=== PATIENT | male | born 1945 | race African-American/Black ===

== ENCOUNTER 2019-01-08 15:03 | Inpatient (IN) | payer MEDICARE ==
[~2019-01-08] VITALS: Ht 185.4 cm; Wt 83.5 kg
--- OUTSIDE RECORDS SUMMARY | 2019-01-08 15:06 | XMS REPORT ---
Author Author [facility] Address Unknown Phone Unavailable Care Team Providers Care Electro Mechanic Name Role Phone Unavailable Unavailable Payers Payer Name Policy Type Policy Number Effective Date Expiration Date Problems This patient has no known problems. Allergies, Adverse Reactions, Alerts Allergy Name Allergy Type Status Severity Reaction(s) Onset Date Inactive Date Treating Clinician Comments No Known Allergies DA Active U 2016-03-30 00:00:00 Medications This patient has no known medications.
--- OUTSIDE RECORDS SUMMARY | 2019-01-08 15:06 | XMS REPORT | Clinical Summary ---
Author Author [facility] Address Unknown Phone Unavailable Care Team Providers Care Water/Wastewater Project Manager Name Role Phone Jagjit Villela MD PCP Allergies No Known Allergies Medications End Date Status Medication Sig Dispensed Refills Start Date Active diphenoxylate-atropine Take 1 tablet 2 (LOMOTIL) 2.5-0.025 mg by mouth 4 7 per tablet (four) times a day as needed. Active metoprolol tartrate TK 1 T PO 3 (LOPRESSOR) 25 mg tablet BID 7 Active pantoprazole (PROTONIX) TK 1 T PO BID 2 40 MG EC tablet 7 Active VOTRIENT 200 mg chemo TAKE 4 tablet TABLETS BY 7 MOUTH ONCE A DAY ON A EMPTY STOMACH Active simvastatin (ZOCOR) 40 MG Take 40 mg by 4 tablet mouth 7 nightly. Active valsartan (DIOVAN) 80 MG Take 80 mg by 0 tablet mouth every morning. Active DOCOSAHEXANOIC ACID/EPA Take 2 0 (FISH OIL ORAL) capsules by mouth daily. Active garlic capsule Take 1 0 capsule by mouth 2 (two) times a day. Active metoprolol succinate XL TK 1 T PO QD 3 (TOPROL-XL) 50 mg 24 hr 7 tablet Active tamsulosin (FLOMAX) 0.4 Take 1 90 capsule 3 mg capsule,extended capsule (0.4 8 release 24hrIndications: mg total) by Frequent urinary mouth daily. incontinence Active finasteride (PROSCAR) 5 TAKE 1 90 tablet 0 mg tablet TABLET(5 MG) 9 BY MOUTH DAILY 08/30/2019 Active finasteride (PROSCAR) 5 Take 1 tablet 90 tablet 3 08/30/201 mg tablet (5 mg total) 9 by mouth daily. 05/21/2018 Discontinued (Reorder) finasteride (PROSCAR) 5 Take 1 tablet 90 tablet 3 201 mg tablet (5 mg total) 8 by mouth daily. Active Problems Problem Noted Date Left renal mass 11/22/2016 Encounters Care Team Description Date Type Specialty Richard Barr MD Left renal mass (Primary Dx); Frequent urinary incontinence 08/30/2018 Office Visit Urology Richard Barr MD 05/21/2018 Refill Urology after 01/07/2018 Family History Medical History Relation Name Comments Heart failure Brother Cancer Brother Lung cancer Brother Cancer Father Colon cancer Father Alzheimer's disease Mother Relation Name Status Comments Brother Brother Father Mother Social History Date Tobacco Use Types Packs/Day Years Used Quit: 1991 Former Smoker Cigarettes 20 Drinks/Week oz/Week Comments Alcohol Use No Sex Assigned at Date Recorded Not on file Industry Job Start Date Occupation Not on file Not on file Not on file Travel End Travel History Travel Start No recent travel history available. Last Filed Vital Signs Reading Time Taken Comments Vital Sign - - Blood Pressure - - Pulse - - Temperature 16 08/30/2018 11:53 AM CDT Respiratory Rate - - Oxygen Saturation - - Inhaled Oxygen Concentration 74.4 kg (164 lb) 08/30/2018 11:53 AM CDT Weight 182.9 cm (6') 08/30/2018 11:53 AM CDT Height 22.24 08/30/2018 11:53 AM CDT Body Mass Index Plan of Treatment Health Maintenance Due Date Last Done Comments COLONOSCOPY SCREENING 08/31/1997 SHINGLES VACCINES (#1) 08/31/1997 65+ PNEUMOCOCCAL VACCINE 08/31/2012 (1 of 2 - PCV13) INFLUENZA VACCINE 11/23/2018 Implants Device Identifier Shelf Expiration Date Model / Serial / Lot Implanted Type Area Manufactur er Titanium Description:titanium nereida and screws in hip Results Not on fileafter 01/07/2018 Insurance Type Payer Benefit Subscriber ID Effective Phone Address Plan / Dates Group Medicare MEDICARE MEDICARE xxxxxxxxxxx 2012-P [place], PART A AND resent [place] B Commercial AARP AARP xxxxxxxxxxx 2015-P SUPPLEMENT resent Advance Directives For more information, please contact: [phone] 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
[2019-01-08] MEDS ORDERED: SODIUM CHLORIDE 0.9% 1000ML 1,000 ML IV ONE (17:00)
[2019-01-08 17:41] LABS: BASOPHILS % 0.3 % (0.0-1.0); EOSINOPHILS % 0.2 % (0.0-6.0); HEMATOCRIT 34.1 % (38.2-49.6); HEMOGLOBIN 11.5 g/dL (14.0-18.0); LYMPHOCYTES # (AUTO) 0.4 (1.0-3.2); LYMPHOCYTES % 7.2 % (18.0-39.1); MEAN CORPUSCULAR HEMOGLOBIN 36.9 pg (28-32); MEAN CORPUSCULAR HGB CONC 33.7 g/dL (31-35); MEAN CORPUSCULAR VOLUME 109.3 fL (81-99); MONOCYTES # (AUTO) 0.3 (0.2-0.8); MONOCYTES % 4.7 % (4.4-11.3); NEUTROPHILS # (AUTO) 5.2 (2.1-6.9); NEUTROPHILS % 86.6 % (38.7-80.0); PLATELET COUNT 267 x10e3/uL (140-360); RED BLOOD COUNT 3.12 x10e6/uL (4.3-5.7); RED CELL DISTRIBUTION WIDTH 15.4 % (11.7-14.4)
[2019-01-08 18:09] LABS: ALANINE AMINOTRANSFERASE 53 IU/L (0-55); ALBUMIN 2.3 g/dL (3.5-5.0); ALBUMIN/GLOBULIN RATIO 0.5 (0.8-2.0); ALKALINE PHOSPHATASE 214 IU/L (40-150); ANION GAP 14.7 mmol/L (8-16); BLOOD UREA NITROGEN 19 mg/dL (7-26); BUN/CREATININE RATIO 24 (6-25); CALCIUM 9.7 mg/dL (8.4-10.2); CARBON DIOXIDE 25 mmol/L (22-29); CHLORIDE 95 mmol/L (98-107); CREATININE, SERUM 0.78 mg/dL (0.72-1.25); EST GLOMERULAR FILTRATION RATE > 60 ML/MIN (60-); GLUCOSE 98 mg/dL (74-118); POTASSIUM 3.7 mmol/L (3.5-5.1); SODIUM 131 mmol/L (136-145)
[2019-01-08] MEDS ORDERED: LACTULOSE SYRUP 20 GM/30 ML UDC PO PRN (18:30)
[2019-01-08] MEDS ORDERED: ONDANSETRON HCL INJ 2MG/ML 2ML 2 MG/ML VIAL IV PRN (18:30)
[2019-01-08] MEDS: SODIUM CHLORIDE 0.9% 1000ML 1,000 ML IV SCH (18:30)
[2019-01-08] MEDS ORDERED: SODIUM CHLORIDE FLUSH 10 ML SYR INJ PRN (18:30)
--- OUTSIDE RECORDS SUMMARY | 2019-01-08 19:01 | XMS REPORT | Clinical Summary ---
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
--- NOTE | 2019-01-08 19:19 | Diagnostic Imaging Report ---
Exam: Radiographs of the abdomen. Clinical History: Dehydration. Loss of appetite. Fatigue. Constipation. Comparison: None Findings: Frontal views of the abdomen demonstrate a nonobstructive bowel gas pattern with copious retained stool. There are no suspicious calcifications.Surgical clips in the right upper abdomen. Postsurgical change in the left hip. Likely large osteophyte in the mid left lumbar spine. Ill-defined opacity in the left lung base could be due to developing pneumonia in the appropriate clinical context. Impression: Findings which could be due to constipation. Ill-defined opacity in the left lung base could be due to developing pneumonia in the appropriate clinical context. Signed by: Dr. Sampson Diggs M.D. on 01/08/2019 7:15 PM
--- NOTE | 2019-01-08 20:18 | NUR ---
pt/family informed of admit to 115
--- NOTE | 2019-01-08 20:42 | NUR ---
2nd attempt to call report
--- NOTE | 2019-01-08 20:52 | NUR ---
3rd attempt to call report
--- NOTE | 2019-01-08 21:06 | NUR ---
REPORT CALLED AND HOME MEDS ENTERED INTO THE COMPUTER
[2019-01-08] MEDS ORDERED: LUMIGAN2.5 M1 (21:13)
[2019-01-08] MEDS ORDERED: TRAZODONE HCL50 MG PO (21:13)
[2019-01-08] MEDS ORDERED: BESIVANCE5 ML (21:13)
[2019-01-08] MEDS ORDERED: ALPRAZOLAM0.5 MG (21:13)
[2019-01-08] MEDS ORDERED: PROCHLORPERAZIN10 MG (21:13)
[2019-01-08] MEDS ORDERED: COMBIGAN EYE DRO5 ML (21:13)
[2019-01-08] MEDS ORDERED: FINASTERIDE5 MG (21:13)
[2019-01-08] MEDS ORDERED: LOPRESSOR25 MG PO (21:13)
[2019-01-08] MEDS ORDERED: ASPIRIN325 MG PO (21:13)
--- NOTE | 2019-01-08 21:13 | NUR ---
ANNABEL THE RECEIVING NURSE ON M-S 1 WAS NOTIFIED OF NEED FOR A URINE SPECIMEN
--- NOTE | 2019-01-08 21:50 | NUR ---
RECEIVED FROM ER IN [facility] WITH C/O DEHYDRATION AND CONSTIPATION/.[id number]. PER COMMENTS PT EATS NORMALLY AND USES WHEEL CHAIR AT HOME.ASSESSMENT DONE.NO RESP.DISTRESS.IV NS RUNNING TO RAC#20G.ORIENTED TO THE UNIT.BED LOCKED AND IN LOWEST POSITION.PHONE AND CALL LIGHT WITHIN REACH.INSTRUCTED TO CALL FOR ASSISTANCE NEEDED.FAMILY MEMBER AT BED SIDE.LEFT INDEX FINGER IS SWOLLEN AND RED.URINE TO BE SENT TO THE LAB.PROVIDED SPECIMEN CONTAINER AND EXPLAINED TO THE PATIENT AND FAMILY MEMBER.VERBALIZED UNDERSTANDING.
[2019-01-08 22:10] VITALS: BP 110/68
[2019-01-08 22:18] VITALS: BP 110/68
[2019-01-09] VITALS (9 sets, daily range): BP systolic 110–127; BP diastolic 68–83
[2019-01-09 04:33] LABS: BILIRUBIN,URINE NEGATIVE (NEGATIVE); CLARITY,URINE CLEAR (CLEAR); COLOR,URINE YELLOW (YELLOW); KETONES,URINE TRACE (NEGATIVE); LEUKOCYTE ESTERASE ,URINE TRACE (NEGATIVE); NITRITE,URINE NEGATIVE (NEGATIVE); PROTEIN,URINE DIPSTICK TRACE (NEGATIVE); URINE UROBILINOGEN 1 mg/dL (0.2 - 1)
[2019-01-09 04:41] LABS: BACTERIA,URINE FEW /HPF; RBC,URINE >50 /HPF (0-5); WBC,URINE (MAN) 21-50 /HPF (0-5)
[2019-01-09 04:42] LABS: EPITHELIAL CELLS,URINE FEW /LPF
[2019-01-09] MEDS: HYDROMORPHONE 1MG/1ML INJ IV PRN ×2 (05:23→17:15)
--- NOTE | 2019-01-09 05:24 | NUR ---
HAS C/O SHOULDER PAIN.NOTIFIED TO .RECEIVED NEW ORDERS.URINE SENT TO THE LAB.
[2019-01-09] MEDS: SODIUM CHLORIDE 0.9% 1000ML 1,000 ML IV SCH ×2 (05:33→14:23)
[2019-01-09 05:43] LABS: BASOPHILS % 0.2 % (0.0-1.0); EOSINOPHILS % 0.2 % (0.0-6.0); HEMATOCRIT 29.7 % (38.2-49.6); HEMOGLOBIN 9.9 g/dL (14.0-18.0); LYMPHOCYTES # (AUTO) 0.5 (1.0-3.2); LYMPHOCYTES % 9.6 % (18.0-39.1); MEAN CORPUSCULAR HEMOGLOBIN 36.5 pg (28-32); MEAN CORPUSCULAR HGB CONC 33.3 g/dL (31-35); MEAN CORPUSCULAR VOLUME 109.6 fL (81-99); MONOCYTES # (AUTO) 0.3 (0.2-0.8); NEUTROPHILS # (AUTO) 4.6 (2.1-6.9); NEUTROPHILS % 83.3 % (38.7-80.0); PLATELET COUNT 228 x10e3/uL (140-360); RED BLOOD COUNT 2.71 x10e6/uL (4.3-5.7); RED CELL DISTRIBUTION WIDTH 15.1 % (11.7-14.4)
[2019-01-09 06:05] LABS: ALANINE AMINOTRANSFERASE 42 IU/L (0-55); ALBUMIN 1.9 g/dL (3.5-5.0); ALBUMIN/GLOBULIN RATIO 0.5 (0.8-2.0); ALKALINE PHOSPHATASE 174 IU/L (40-150); ANION GAP 13.4 mmol/L (8-16); BLOOD UREA NITROGEN 14 mg/dL (7-26); BUN/CREATININE RATIO 22 (6-25); CALCIUM 8.3 mg/dL (8.4-10.2); CARBON DIOXIDE 21 mmol/L (22-29); CHLORIDE 100 mmol/L (98-107); CREATININE, SERUM 0.65 mg/dL (0.72-1.25); EST GLOMERULAR FILTRATION RATE > 60 ML/MIN (60-); GLUCOSE 86 mg/dL (74-118); MAGNESIUM 1.5 MG/DL (1.3-2.1); PHOSPHORUS 2.5 MG/DL (2.3-4.7); POTASSIUM 3.4 mmol/L (3.5-5.1); SODIUM 131 mmol/L (136-145)
--- NOTE | 2019-01-09 07:02 | NUR ---
BEDSIDE SHIFT REPORT GIVEN TO THE ONCOMING RN.WALKING ROUNDS DONE.
[2019-01-09] MEDS: DOCUSATE SODIUM LIQD 100 MG/10 ML UDC NG SCH ×2 (08:59→17:00)
[2019-01-09] MEDS ORDERED: CABOMETYX PO (11:30)
[2019-01-09] MEDS: LACTULOSE SYRUP 20 GM/30 ML UDC PO SCH (11:51)
[2019-01-09] MEDS: CEFEPIME 1GM/NS 0.9% 50 ML 50 ML IV SCH ×2 (11:51→23:36)
[2019-01-09] MEDS ORDERED: MINERAL OIL 132 ML BTL PR ONE (12:00)
[2019-01-09] MEDS ORDERED: AZITHROMYCIN 250MG/NS 100 ML 100 ML IV SCH (12:00)
[2019-01-09] MEDS ORDERED: PROCHLORPERAZINE MALEATE TAB 10 MG TAB PO SCH (12:00)
[2019-01-09] MEDS ORDERED: PROCHLORPERAZINE MALEATE TAB 10 MG TAB PO PRN (12:30)
[2019-01-09] MEDS: AZITHROMYCIN 250MG/NS 100 ML 100 ML IV SCH (12:43)
[2019-01-09] MEDS ORDERED: ALPRAZOLAM 0.5 MG TAB PO PRN (15:00)
[2019-01-09] MEDS ORDERED: ALPRAZOLAM 0.5 MG TAB PO SCH (15:00)
[2019-01-09] MEDS: METOPROLOL TARTRATE 25 MG TAB PO SCH (16:17)
[2019-01-09] MEDS ORDERED: FINASTERIDE 5 MG TAB PO ONE (22:00)
[2019-01-09] MEDS: BIMATOPROST(OPTH) 2.5 ML BOTTLE OP SCH (22:11)
[2019-01-09] MEDS ORDERED: METOPROLOL SUCCINATE 25 MG TAB XL PO ONE (22:30)
[2019-01-09] MEDS ORDERED: HYDROMORPHONE 1MG/1ML INJ IV PRN (23:00)
[2019-01-09] MEDS ORDERED: METOPROLOL TARTRATE 25 MG TAB PO ONE (23:15)
[2019-01-09] MEDS: ACETAMINOPHEN/CODEINE 300MG - 30MG TAB PO PRN (23:36)
[2019-01-10] VITALS (7 sets, daily range): BP systolic 104–127; BP diastolic 63–80
[2019-01-10] MEDS: SODIUM CHLORIDE 0.9% 1000ML 1,000 ML IV SCH ×3 (05:35→17:06)
[2019-01-10] MEDS ORDERED: FINASTERIDE 5 MG TAB PO SCH (09:00)
[2019-01-10] MEDS ORDERED: CABOMETYX 60 MG PO SCH (09:00)
[2019-01-10] MEDS ORDERED: TRAZODONE HCL 50 MG TAB PO SCH (09:00)
[2019-01-10] MEDS: DOCUSATE SODIUM LIQD 100 MG/10 ML UDC NG SCH (09:00)
[2019-01-10] MEDS: ASPIRIN 325 MG TAB PO SCH (10:55)
[2019-01-10] MEDS: BRIMONIDINE/TIMOLOL (OPTH SOLN 5 ML DRPETTE OP SCH (10:55)
[2019-01-10] MEDS: LACTULOSE SYRUP 20 GM/30 ML UDC PO SCH ×2 (10:57→17:30)
[2019-01-10] MEDS: METOPROLOL TARTRATE 25 MG TAB PO SCH ×2 (10:57→17:45)
[2019-01-10] MEDS: CEFEPIME 1GM/NS 0.9% 50 ML 50 ML IV SCH (11:55)
[2019-01-10] MEDS ORDERED: TRAZODONE HCL 50 MG TAB PO PRN ×2 (12:00)
--- NOTE | 2019-01-10 12:07 | Diagnostic Imaging Report ---
EXAM: CHEST 2 VIEWS DATE: 01/10/2019 10:51 AM INDICATION: Shortness of breath COMPARISON: Abdominal radiograph from 01/08/2019 FINDINGS: Please note suboptimal positioning on lateral radiograph limits evaluation. The trachea is midline. There are mildly increased opacities present within the left lung base which may reflect atelectasis. A developing airspace process could have a similar appearance. There is no evidence for large focal consolidation, pneumothorax, or significant pleural effusion. The cardiomediastinal silhouette and pulmonary vasculature are within normal limits. The osseous structures to demonstrate degenerative changes without evidence for acute abnormality. IMPRESSION: Mildly increased left basilar opacities which may reflect atelectasis. A developing air space process such as pneumonia could have a similar appearance. Recommend correlation with symptomatology and follow-up examination as clinically warranted. Signed by: Dr. Jeanmarie Lynne MD on 01/10/2019 12:04 PM
[2019-01-10] MEDS: AZITHROMYCIN 250MG/NS 100 ML 100 ML IV SCH (12:29)
[2019-01-10] MEDS ORDERED: CEPACOL SORE THROAT LOZENGES PO PRN (16:15)
--- NOTE | 2019-01-10 19:10 | NUR ---
Patient visited in room during nursing rounds. Patient alert and oriented x3. Pt diapered and uses urinal prn. at bedside. Up with assist prn. IVF (NS at 100ml/hr) running. Call shah within reach.
--- NOTE | 2019-01-10 19:45 | NUR ---
Patient had a bowel movement but he stated he had to strain too much. Bowel movement yielded formed brown stool. requested nurse (Talon) to call Dr. Marlin Shah to obtain other stool softeners aside from Lactulose.
--- NOTE | 2019-01-10 19:48 | NUR ---
Paged Dr. Marlin Shah to obtain possible stool softener order. Awaiting on MD call back.
[2019-01-10] MEDS: [UNRECOGNIZED DRUG - REMARK] PO SCH (21:00)
[2019-01-10] MEDS ORDERED: HOME MEDICATION--PATIENTS OWN PO SCH (21:00)
[2019-01-10] MEDS: BIMATOPROST(OPTH) 2.5 ML BOTTLE OP SCH (21:00)
[2019-01-10] MEDS: FINASTERIDE 5 MG TAB PO SCH (21:15)
[2019-01-10] MEDS: ACETAMINOPHEN/CODEINE 300MG - 30MG TAB PO PRN (21:18)
--- NOTE | 2019-01-10 22:30 | NUR ---
Patient had a large and loose brown stool bowel movement. Patient was given a bed bath and linens and diaper were changed. witnessed patient having loose bowel movement.
[2019-01-11] VITALS: BP 111/78
[2019-01-11] MEDS: CEFEPIME 1GM/NS 0.9% 50 ML 50 ML IV SCH ×2 (00:10→12:00)
[2019-01-11] MEDS: ACETAMINOPHEN/CODEINE 300MG - 30MG TAB PO PRN (04:08)
[2019-01-11] MEDS: SODIUM CHLORIDE 0.9% 1000ML 1,000 ML IV SCH ×2 (04:18→16:23)
[2019-01-11 05:39] LABS: BASOPHILS % 0.6 % (0.0-1.0); EOSINOPHILS % 0.6 % (0.0-6.0); HEMATOCRIT 33.1 % (38.2-49.6); HEMOGLOBIN 10.8 g/dL (14.0-18.0); LYMPHOCYTES # (AUTO) 0.5 (1.0-3.2); LYMPHOCYTES % 10.5 % (18.0-39.1); MEAN CORPUSCULAR HEMOGLOBIN 36.9 pg (28-32); MEAN CORPUSCULAR HGB CONC 32.6 g/dL (31-35); MONOCYTES # (AUTO) 0.2 (0.2-0.8); MONOCYTES % 4.6 % (4.4-11.3); NEUTROPHILS # (AUTO) 3.9 (2.1-6.9); NEUTROPHILS % 82.9 % (38.7-80.0); PLATELET COUNT 278 x10e3/uL (140-360); RED BLOOD COUNT 2.93 x10e6/uL (4.3-5.7); RED CELL DISTRIBUTION WIDTH 15.6 % (11.7-14.4)
--- NOTE | 2019-01-11 07:10 | NUR ---
RCD PT AT BED PT IS ALERT AND ORIENTED PT RESTING ON BEDIV PATENT BY SALINE FLUSH BED LOW AND LOCKED CALL LIGHT IN REACH
[2019-01-11] MEDS: METOPROLOL TARTRATE 25 MG TAB PO SCH ×2 (07:30→16:30)
[2019-01-11 07:36] VITALS: BP 120/84
--- NOTE | 2019-01-11 08:52 | Diagnostic Imaging Report ---
Chest, 1 view, 01/11/2019. History: Shortness of breath. Comparison: 01/10/2019. Findings: The cardiomediastinal silhouette and pulmonary vasculature are within normal limits for a portable exam. Patchy left basilar opacity is unchanged. Linear opacities are also noted in the right lower lobe. There are no acute osseous or soft tissue abnormalities. Impression: No significant change. Signed by: Chris Quiles on 01/11/2019 8:48 AM
[2019-01-11 09:00] VITALS: BP 120/84
[2019-01-11] MEDS: BRIMONIDINE/TIMOLOL (OPTH SOLN 5 ML DRPETTE OP SCH (09:00)
[2019-01-11] MEDS: LACTULOSE SYRUP 20 GM/30 ML UDC PO SCH (09:00)
[2019-01-11] MEDS: ASPIRIN 325 MG TAB PO SCH (09:00)
[2019-01-11 10:53] LABS: LYMPHOCYTES % (MANUAL) 12 % (19-48); MONOCYTES % (MANUAL) 4 % (3.4-9.0); NEUTROPHILS % (MANUAL) 84 % (40-74); PLATELET ESTIMATE ADEQUATE; RBC MORPHOLOGY COMMENT NORMAL
[2019-01-11] MEDS: AZITHROMYCIN 250MG/NS 100 ML 100 ML IV SCH ×2 (12:29→13:00)
[2019-01-11 12:43] VITALS: BP 115/84
[2019-01-11 16:07] VITALS: BP 113/77
--- NOTE | 2019-01-11 18:00 | NUR ---
PT HAVE NO DIARRHEA AFTER 1000
--- NOTE | 2019-01-11 18:41 | NUR ---
PT RESTING ON BED BED SIDE REPORT GIVEN TO ONCOMING NURSE
[2019-01-11 20:00] VITALS: BP 121/71
[2019-01-11] MEDS: TAMSULOSIN HCL 0.4 MG CAP PO SCH (20:50)
[2019-01-11] MEDS: FINASTERIDE 5 MG TAB PO SCH (20:50)
[2019-01-11] MEDS: BIMATOPROST(OPTH) 2.5 ML BOTTLE OP SCH (21:00)
[2019-01-11] MEDS: [UNRECOGNIZED DRUG - REMARK] PO SCH (21:00)
[2019-01-12] VITALS (8 sets, daily range): BP systolic 98–141; BP diastolic 56–77
[2019-01-12] MEDS: SODIUM CHLORIDE 0.9% 1000ML 1,000 ML IV SCH ×3 (00:15→21:26)
[2019-01-12] MEDS: ACETAMINOPHEN/CODEINE 300MG - 30MG TAB PO PRN (01:23)
--- NOTE | 2019-01-12 07:10 | NUR ---
RCD PT AT BED PT IS ALERT AND ORIENTED ASSESSMENT DONE PT RESTING ON BED NO SIGNS OF ANY DISTRESS NOTED IV PATENT FAMILY AT BED SIDE BED LOW AND LOCKED CALL LIGHT IN REACH
[2019-01-12] MEDS: METOPROLOL TARTRATE 25 MG TAB PO SCH ×2 (07:30→16:30)
[2019-01-12] MEDS: BRIMONIDINE/TIMOLOL (OPTH SOLN 5 ML DRPETTE OP SCH (08:40)
[2019-01-12] MEDS: ASPIRIN 325 MG TAB PO SCH (08:40)
[2019-01-12] MEDS ORDERED: ALBUTEROL/IPRATROPIUM 3 ML NEB NEB PRN (10:30)
--- NOTE | 2019-01-12 11:40 | NUR ---
Spoke to Dr. Shah regarding order to transfer to [facility] on Tuesday. He states he was fine with transferring the pt today but was not sure if family would be on board with it. Asked CM to speak with pt's . CM spoke to pt's at bedside. Explained order for LT[facility]. She states that Dr. Shah did talk to them about transferring. She's ok with pt transferring today if we got a bed. Choice letter signed for [facility] and placed in chart. Copy to pt's . CM left business card for any questions/concerns. Informed Sandrine Flood of referral. She's at the hospital now and will corn picker clinicals. Discharge disposition, once approved: [facility] [address] [place] [address]
[2019-01-12] MEDS: CEFEPIME 1GM/NS 0.9% 50 ML 50 ML IV SCH ×2 (12:00)
[2019-01-12] MEDS: AZITHROMYCIN 250MG/NS 100 ML 100 ML IV SCH (13:00)
--- NOTE | 2019-01-12 14:40 | NUR ---
PATIENT HAS BEEN ACCEPTED TO: [facility] [address] [place] [address] ACCEPTING DRIVER LIFTER OF SANITATION TRUCK: Barbara Encarnacion ACCEPTING MD: Dr. Julio Shah ROOM: 309 AFTER 7pm NURSE CALL REPORT TO: [phone] THE FOLLOWING DOCUMENTS MUST ACCOMPANY PATIENT FOR TRANSFER: Copied chart COPIED CHART: Tess, varnishing unit operator MOT INFO RECEIVED FROM: Sandrine Flood PHYSICIANS ORDER/RECONCILED MED LIST: Bedside RN to obtain [id number] DNR: n/a MOT completed and placed with pt's packet at nurse's station. NINA Murillo was informed of MOT.
--- NOTE | 2019-01-12 19:20 | NUR ---
REPORT CALLED TO CLEMENT WOOD AT [facility]
[2019-01-12] MEDS: BIMATOPROST(OPTH) 2.5 ML BOTTLE OP SCH (21:00)
[2019-01-12] MEDS: [UNRECOGNIZED DRUG - REMARK] PO SCH (21:00)
[2019-01-12] MEDS: FINASTERIDE 5 MG TAB PO SCH (21:25)
[2019-01-12] MEDS: TAMSULOSIN HCL 0.4 MG CAP PO SCH (21:25)
== END 2019-01-12 22:35 | DRG 871 ==
LOC: ER 15:03 → ERHOLD 18:53 → MED/SURG 21:15 → MED/SURG2 01-10 14:08
DX: A41.9 Sepsis, unspecified organism (principal); J18.1 Lobar pneumonia, unspecified organism; C64.9 Malignant neoplasm of unspecified kidney, except renal pelvis; N39.0 Urinary tract infection, site not specified; E86.0 Dehydration; K59.00 Constipation, unspecified; Z96.649 Presence of unspecified artificial hip joint
CPT/HCPCS: 36415; 71045; 71046; 74019; 80053; 81001; 83518; 83735; 84100; 85025; 87070; 87086; 96361; 97139; 99284; J0692; J1170; J2405; J7030